=== PATIENT | female | born 1960 | race Caucasian/White ===

== ENCOUNTER → 2023-09-23 06:41 | Outpatient (REF) | payer OTHER, SELFPAY | LOC: WDC 06:41 | PROVIDERS: ATTENDING PHYSICIAN Obstetrics & Gynecology Gynecology; FAMILY PHYSICIAN Physician Assistant Medical | DX: Z12.31 Encounter for screening mammogram for malignant neoplasm of breast (principal) | CPT/HCPCS: 77063; 77067 ==

== ENCOUNTER → 2024-09-28 06:40 | Outpatient (REF) | payer BC, SELFPAY | LOC: WDC 06:40 | PROVIDERS: ATTENDING PHYSICIAN Obstetrics & Gynecology Gynecology; FAMILY PHYSICIAN Physician Assistant Medical | DX: Z12.31 Encounter for screening mammogram for malignant neoplasm of breast (principal) | CPT/HCPCS: 77063; 77067 ==